=== PATIENT | male | born 1975 | race Caucasian/White ===

== ENCOUNTER 2019-04-10 19:37 | Emergency (ER) | payer BC ==
[2019-04-10 19:46] VITALS: RESP 18; TEMP 98.3
[2019-04-10] MEDS ORDERED: MORPHINE SULFATE 4 MG/ML SYRINGE IVP STA (20:14)
--- NOTE | 2019-04-10 21:02 | XR ---
PROCEDURE: XR ankle complete LT - 3V DATE AND TIME: 04/10/2019 8:48 PM CLINICAL INDICATION: PHH; Pain TECHNIQUE: Department protocol COMPARISON: None FINDINGS: There is a mildly-displaced bimalleolar intra-articular fracture, with mild lateral subluxation at th e mortise. The talar dome and remainder of the hindfoot appears intact. IMPRESSION: Bimalleolar fracture.
--- NOTE | 2019-04-10 21:04 | XR ---
PROCEDURE: XR tibia fibula LT - 1V DATE AND TIME: 04/10/2019 8:48 PM CLINICAL INDICATION: PHH; Pain TECHNIQUE: Department protocol COMPARISON: None FINDINGS: The bimalleolar fracture at the left ankle is redemonstrated, with mild lateral subluxation at the mortise. The remainder of the tibia and fibula are intact. IMPRESSION: AP VIEW LEFT TIB-FIB: BIMALLEOLAR FRACTURE.
--- NOTE | 2019-04-10 21:05 | XR ---
PROCEDURE: XR foot limited LT - 2V DATE AND TIME: 04/10/2019 8:48 PM CLINICAL INDICATION: PHH; Pain TECHNIQUE: AP and crosstable lateral COMPARISON: None FINDINGS: The displaced bimalleolar fracture is redemonstrated. The talus and calcaneus appear intact as do the structures of the midfoot and forefoot. IMPRESSION: Bimalleolar fracture.
--- NOTE | 2019-04-10 21:33 | ED ---
General Adult HPI - General Chief complaint: Extremity Injury, Lower Stated complaint: Ankle Injury Time Seen by Provider: 04/10/19 20:09 Source: patient, EMS Mode of arrival: EMS - History of Present Illness Initial comments: Patient is a 43-year-old male presents with a chief complaint of a left ankle injury while rollerblading today. Patient states that he was [place] a skate park, and rolled his ankle on a ramp. Says he has not been able to walk since. He states that he thinks it is deformed. Patient denies any other injuries today, he denies hitting his head or loss of consciousness. Patient was given 75 g of fentanyl EMS, he states his pain is about 6 out of 10. - Related Data Previous Rx's Medication Instructions Recorded Hydrocodone/Acetaminophen [Comstock 1 tab PO Q6HR PRN 3 Days #12 tab 04/10/19 5-325] Ibuprofen [Motrin] 800 mg PO TID #20 tab 04/10/19 Allergies Allergy/AdvReac Type Severity Reaction Status Date / Time No Known Allergies Allergy Verified 04/10/19 19:53 Review of Systems ROS Statement: Those systems with pertinent positive or pertinent negative responses have been documented in the HPI. ROS Other: All systems not noted in ROS Statement are negative. Musculoskeletal: Reports: arthralgia Past Medical History Additional Past Medical History / Comment(s): HX. BLEEDING NOTED AFTER BM & OCCASIONAL INDIGESTION R/T SPICY FOODS History of Any Multi-Drug Resistant Organisms: None Reported Additional Past Surgical History / Comment(s): HX. CYST REMOVED & WISDOM TEETH REMOVED Past Anesthesia/Blood Transfusion Reactions: No Reported Reaction Smoking Status: Current every day smoker Past Alcohol Use History: Occasional Past Drug Use History: None Reported - Past Family History Father Family Medical History: Cancer Additional Family Medical History / Comment(s): FATHER HX ESOPHAGEAL CA & HAS STAGE 3 OR 4 STOMACH CA @ THIS TIME General Exam Limitations: physical limitation General appearance: alert, in no apparent distress Head exam: Present: atraumatic, normocephalic Eye exam: Present: normal appearance ENT exam: Present: normal exam Neck exam: Present: normal inspection Respiratory exam: Present: normal lung sounds bilaterally. Absent: respiratory distress, wheezes Cardiovascular Exam: Present: regular rate, normal rhythm GI/Abdominal exam: Present: soft. Absent: distended, tenderness Rectal exam: Present: deferred Extremities exam: Present: tenderness (Patient has tenderness and swelling over the left ankle. There is a small abrasion on the right knee. Patient has bilateral DP pulses that are intact.) Back exam: Present: normal inspection Neurological exam: Present: alert, oriented X3 Psychiatric exam: Present: normal affect, normal mood Skin exam: Present: warm, dry, intact Course Vital Signs 04/10/19 19:42 Temperature 98.3 F Pulse Rate 65 Respiratory 18 Rate Blood Pressure 115/84 O2 Sat by Pulse 96 Oximetry Medical Decision Making - Medical Decision Making Patient presents with left ankle pain after an injury at a skate park. On in itial evaluation, vitals are stable, patient is in no acute distress. The ankle appears swollen but not deformed. X-rays reviewed, radiologist interpretation states that the patient has a bimalleolar fracture. Patient was given 4 mg of morphine, and states his pain is controlled. Case discussed with Dr. Lemon who recommends splinting, crutches, nonweightbearing status, and follow-up tomorrow in the office. Patient is agreeable with this care plan. He is prescribed Motrin and Comstock for pain control. Follow-up with orthopedics in 1 day, return to the ED if symptoms worsen or change. Disposition Clinical Impression: Bimalleolar fracture Disposition: HOME SELF-CARE Instructions (If sedation given, give patient instructions): Ankle Fracture (ED) Prescriptions: Ibuprofen [Motrin] 800 mg PO TID #20 tab Hydrocodone/Acetaminophen [[place] 5-325] 1 tab PO Q6HR PRN 3 Days #12 tab PRN Reason: Severe Pain Is patient prescribed a controlled substance at d/c from ED?: Yes When asked, does pt state using other controlled substances?: No If prescribed controlled substance>3 days was MAPS reviewed?: Prescribed <3 Days If opioid is for acute pain is fill amount 7 days or less?: Yes If Rx opioid, was Start Talking consent form obtained?: Yes Referrals: Elvira Oleary MD [STAFF PHYSICIAN] - 1-2 days Yosvany Lemon MD [STAFF PHYSICIAN] - 1-2 days
[2019-04-10] MEDS ORDERED: HYDROcodone/APAP 5-325MG 1 EACH TAB PO STA (21:37)
[2019-04-10 22:08] VITALS: BP 127/84; PULSE 66
== END 2019-04-10 22:07 | disposition home or self-care (01) ==
LOC: EC 19:37
DX: S82.842A Displaced bimalleolar fracture of left lower leg, initial encounter for closed fracture (principal); F17.200 Nicotine dependence, unspecified, uncomplicated; X50.1XXA Overexertion from prolonged static or awkward postures, initial encounter; Y93.51 Activity, roller skating (inline) and skateboarding
CPT/HCPCS: 73590; 73610; 73620; 99283; 96374; J2270

== ENCOUNTER → 2019-04-12 | Outpatient (CLI) | payer BC ==
--- NOTE | 2019-04-13 08:57 | CT ---
EXAMINATION TYPE: CT ankle LT wo con DATE OF EXAM: 04/12/2019 COMPARISON: Plain films 04/10/2019 HISTORY: Left ankle pain after injury. CT DLP: 244.[address] of the left ankle with reconstruction imaging. TECHNIQUE: Unenhanced CT of the left ankle was performed with bone and soft tissue window settings reyes bmitted in the axial coronal and sagittal planes. At a separate workstation [id number] TR imaging was [place]. FINDINGS: At the level of the ankle mortise there is an oblique medial malleolar fracture with moderate comminu tion. Displacement is noted at approximately 5.2 mm. Several osseous fragments are seen within the so ft tissues measuring up to 6 mm in size. There is widening of the medial tibiotalar joint space measu ring 6.4 mm. There is a small virtually nondisplaced posterior malleolar fracture. There is a osseous fragment noted within the ankle mortise measuring 1 mm. There is a comminuted lateral malleolar fracture with displacement estimated at 6.7 mm. No additional fractures are identified. Extensive soft tissue swelling about the ankle. IMPRESSION: 1. Comminuted and displaced bimalleolar fracture with virtually nondisplaced posterior malleolar comp onent. Widening of the medial tibiotalar joint space. Ankle mortise appears to be intact although the re is a loose body identified measuring 1 mm.
== END | disposition home or self-care (01) ==
LOC: RADCTMAIN 16:40
PROVIDERS: ATTEND Orthopaedic Surgery
DX: S82.842A Displaced bimalleolar fracture of left lower leg, initial encounter for closed fracture (principal)

== ENCOUNTER → 2019-04-17 | Outpatient (CLI) | payer BC ==
--- NOTE | 2019-04-17 10:25 | US ---
EXAMINATION TYPE: US venous doppler duplex LE LT DATE OF EXAM: 04/17/2019 10:12 AM COMPARISON: NONE CLINICAL HISTORY: 43-year-old male M25.572 PAIN IN LT ANKLE,S82.842D,I80.9 PHLEBITIS. Patient state b reaking TF at ankle. No redness or swelling. Calf pain. Not on blood thinners. SIDE PERFORMED: Left TECHNIQUE: The lower extremity deep venous system is examined utilizing real time linear array sonog roopa with graded compression, doppler sonography and color-flow sonography. FINDINGS: VESSELS IMAGED: External Iliac Vein (EIV) Common Femoral Vein Deep Femoral Vein Greater Saphenous Vein * Femoral Vein Popliteal Vein Small Saphenous Vein * Proximal Calf Veins (* superficial vessels) Left Leg: Negative for DVT IMPRESSION: No evidence for DVT within the left lower extremity imaged from the groin to the upper calf.
== END | disposition home or self-care (01) ==
LOC: RADUSWWP 09:43
PROVIDERS: ATTEND Orthopaedic Surgery
DX: M25.572 Pain in left ankle and joints of left foot (principal); S82.842D Displaced bimalleolar fracture of left lower leg, subsequent encounter for closed fracture with routine healing; I80.9 Phlebitis and thrombophlebitis of unspecified site